=== PATIENT | male | born 1940 | race Caucasian/White ===

== ENCOUNTER 2021-07-12 19:43 | Emergency (ER) | payer OTHER, SELFPAY ==
[2021-07-12 19:50] VITALS: BP 212/95; PULSE 77; RESP 18; TEMP 36.3; O2SAT 99; BMI 29.0
[2021-07-12 21:11] LABS: Add Manual Diff / Slide Review NO; Basophils Absolute Auto 100 /uL (0-100); Basophils Percent Auto 0.5 % (0-2); Eosinophils Absolute Auto 200 /uL (0-450); Eosinophils Percent Auto 1.4 % (2-4); Hematocrit 51.3 % (41-53); Lymphocytes Absolute Auto 900 /uL (1100-4500); Mean Corpuscular HGB Conc 35.1 % (30-36); Mean Corpuscular Hemoglobin 33.5 PG (26-34); Mean Corpuscular Volume 95.4 fL (80-100); Monocytes Absolute Auto 800 /uL (0-900); Monocytes Percent Auto 7.2 % (3-14); Neutrophils Absolute Auto 9800 /uL (1500-7000); Neutrophils Percent Auto 82.9 % (50-75); Platelet Count 216 X10^3/uL (150-400); Red Blood Cell Count 5.38 X10^6/uL (4.5-5.9); Red Cell Distribution Width 13.4 % (11.6-14.8); White Blood Cell Count 11.8 X10^3/uL (4.5-11.0)
[2021-07-12 21:19] LABS: Alanine Aminotransferase 27 IU/L (<50); Albumin 5.1 g/dL (3.5-5.0); Albumin Globulin Ratio 1.3 (1.0-2.8); Alkaline Phosphatase 68 U/L (38-126); Aspartate Aminotransferase 25 IU/L (17-59); BUN Creatinine Ratio 13.3 (6-22); Blood Urea Nitrogen 20 mg/dL (9-20); Calcium 10.2 mg/dL (8.4-10.2); Carbon Dioxide 25 mmol/L (22-32); Chloride 97 mmol/L (98-107); Estimated Glomerular Filt Rate 45.1 mL/min (>60); Globulin 3.8 g/dL (1.7-4.1); Glucose 262 mg/dL (80-110); HEMOLYSIS < 15 (0-50); Lipase 41 U/L (23-300); Potassium 4.9 mmol/L (3.4-5.1); Sodium 135 mmol/L (137-145); Total Protein 8.9 g/dL (6.3-8.2)
--- NOTE | 2021-07-12 23:25 | ED.ABDPAIN ---
HPI - Abdominal Pain General Chief Complaint: Abdominal Pain Stated Complaint: Lower right ABD pain Time Seen by Provider: 07/12/21 23:11 History of Present Illness HPI narrative: Patient is a 80-year-old male history of rheumatoid arthritis on Enbrel, diabetes, hypertension, hyperlipidemia presenting with ongoing right-sided lower abdominal pain. He says been there throughout the day sharp stab be. Sometimes worse with movement. Nonradiating. He has had decreased appetite today only eating a banana. He denies any flank pain. No painful or frequent urination. He has not had any fever. No chest pain palpitations or shortness. Related Data Previous Rx's Medication Instructions Recorded cephalexin 500 mg capsule 500 mg PO TID #30 cap 10/23/16 Allergies Allergy/AdvReac Type Severity Reaction Status Date / Time Sulfa (Sulfonamide Allergy Unknown Unverified 07/12/21 19:54 Antibiotics) [SULFA (SULFONAMIDE ANTIBIOTICS)] Review of Systems Review of Systems Narrative: GENERAL: Denies chills, fatigue, malaise, fever, sweats, travel HEENT: Denies sinus pain, ear pain, sore throat, difficulty swallowing, neck pain RESPIRATORY: Denies dyspnea, cough, wheezing, hemoptysis, sputum. CARDIOVASCULAR: Denies chest pain, palpitations, orthopnea, edema GASTROINTESTINAL: See HPI : Denies dysuria, frequency, incontinence, hematuria, urinary retention, flank pain. MUSCULOSKELETAL: Denies weakness, joint pain, or bony pain SKIN: No rash, no erythema, no pruritus NEUROLOGIC: Denies weakness, dizziness, headache, numbness, change in speech, confusion PSYCHIATRIC: No concerning psychosocial issues. 12 point review of systems is negative except for those stated above and HPI Patient History Social History Smoking Status: Former smoker Smoking Status: Former smoker alcohol intake frequency: 0-2 drinks per day Substance Use Type: does not use Exam Initial Vital Signs Initial Vital Signs: Vital Signs Temperature 97.3 F L 07/12/21 19:50 Pulse Rate 77 07/12/21 19:50 Respiratory Rate 18 07/12/21 19:50 Blood Pressure 212/95 H 07/12/21 19:50 Pulse Oximetry 99 07/12/21 19:50 GENERAL: Appearing 80-year-old male and in no acute distress. HEENT: Head atraumatic,EOMI, pupils reactive, face symmetric, moist mucous membranes CARDIOVASCULAR: Regular rate and rhythm without murmurs, rubs or gallops. RESPIRATORY: Breath sounds equal bilaterally, no wheezes rales or rhonchi. ABDOMEN: Soft, tender right lower quadrant no guarding or rebound : No CVA tenderness EXTREMITIES: Normal range of motion, no clubbing or edema. Neurovascularly intact NEUROLOGICAL: Alert and oriented x4.Normal gait and speech. SKIN: Warm, dry, no laceration, no petechiae, no rashes or lesions. Course Orders Ordered: ED Orders 07/12/21 19:55 EKG-12 Lead Stat 07/12/21 21:00 Complete Blood Count AUTO DIFF Stat Comprehensive Metabolic Panel Stat Lipase Stat 07/12/21 23:31 CT abdomen pelvis w con Stat 07/13/21 00:50 Urine Microscopic Stat Discontinued Medications Acetaminophen (Acetaminophen 325 Mg Tablet) 975 mg PO NOW ONE Stop: 07/12/21 23:32 Last Admin: 07/12/21 23:43 Dose: 975 mg Documented by: CTRSUKHI Vital Signs Vital signs: Vital Signs - 8 hr 07/12/21 19:50 Temperature 97.3 F L Pulse Rate 77 Respiratory Rate 18 Blood Pressure 212/95 H Pulse Oximetry 99 MDM - Abdominal Pain Lab Data Result diagrams: 07/12/21 21:00 07/12/21 21:00 Labs: Lab Results 07/12/21 07/12/21 07/13/21 Range/Units 21:00 21:00 00:50 WBC 11.8 H (4.5-11.0) X10^3/uL RBC 5.38 (4.5-5.9) X10^6/uL Hgb 18.0 H (13.5-17.5) g/dL Hct 51.3 (41-53) % MCV 95.4 (80-100) fL MCH 33.5 (26-34) PG MCHC 35.1 (30-36) % RDW 13.4 (11.6-14.8) % Plt Count 216 (150-400) X10^3/uL Neut % (Auto) 82.9 H (50-75) % Lymph % (Auto) 8.0 L (25-40) % [place] % (Auto) 7.2 (3-14) % Eos % (Auto) 1.4 L (2-4) % Baso % (Auto) 0.5 (0-2) % Neut # (Auto) 9800 H (4328-2441) /uL Lymph # (Auto) 900 L (6634-1941) /uL [place]y # (Auto) 800 (0-900) /uL Eos # (Auto) 200 (0-450) /uL Baso # (Auto) 100 (0-100) /uL Sodium 135 L (137-145) mmol/L Potassium 4.9 (3.4-5.1) mmol/L Chloride 97 L (98-107) mmol/L Carbon Dioxide 25 (22-32) mmol/L BUN 20 (9-20) mg/dL Creatinine 1.50 H (0.66-1.25) mg/dL Estimated GFR 45.1 L (>60) mL/min BUN/Creatinine Ratio 13.3 (6-22) Glucose 262 H (80-110) mg/dL Calcium 10.2 (8.4-10.2) mg/dL Total Bilirubin 2.0 H (0.2-1.3) mg/dL AST 25 (17-59) IU/L ALT 27 (<50) IU/L Alkaline Phosphatase 68 (38-126) U/L Total Protein 8.9 H (6.3-8.2) g/dL Albumin 5.1 H (3.5-5.0) g/dL Globulin 3.8 (1.7-4.1) g/dL Albumin/Globulin Ratio 1.3 (1.0-2.8) Lipase 41 (23-300) U/L Urine RBC 0-1/hpf (0-5/HPF) Urine WBC None seen (0-5/HPF) Ur Squamous Epith Cells None seen (0-5/HPF) Urine Bacteria None seen (None) Ur Culture Indicated? Cult not indicated Point of care testing: Urine Dip Bedside Urine Glucose 1000 mg/dl Bedside Urine Bilirubin - Negative Bedside Urine Ketone - Negative Urine Specific [place] 1.015 Bedside Urine Occult Blood - Negative Bedside Urine pH 6.0 Bedside Urine Protein + 30 Bedside Urine Urobilinogen - Negative Bedside Urine Nitrite - Negative Bedside Urine Leukocytes - Negative Esterase Imaging Data CT scan - abdomen/pelvis: Radiologist's Impression: PROCEDURE:? CT ABDOMEN PELVIS W CON ? INDICATIONS:? rlq pain ? TECHNIQUE:? After the administration of IV contrast, axial sections were acquired from the lung bases to the pubic symphysis.? Coronal and sagittal reformats were performed.? For radiation dose reduction, the following was used:? automated exposure control, adjustment of mA and/or kV according to patient size. ? COMPARISON:? None. ? FINDINGS:? Image quality:? Excellent.? ? Lung bases:? There is mild dependent atelectasis and scarring in the lung bases.? Subpleural reticulations also noted suggestive of chronic interstitial lung disease. ? Heart:? Heart is normal in size.? There is a small hiatal hernia. ? ? ABDOMEN: Liver:? No mass lesion. Gallbladder:? Within normal limits without calcified gallstones.? ? Biliary ducts:? No biliary ductal dilatation.? ? Pancreas:? Unremarkable.? ? Spleen:? Normal in size.? ? Adrenal Glands:? No adrenal nodules.? ? Kidneys and Ureters:? There is an obstructing stone measuring up to 1 cm at the right ureteropelvic junction.? This demonstrates attenuation values of approximately 5803-5513 Hounsfield units.? There is associated moderate right hydronephrosis extensive perinephric fat stranding and asymmetric hypoenhancement of the right kidney.? There is a nonobstructing stone measuring up to 0.7 cm in the inferior pole of the right kidney with attenuation values approximately 2417-7060 Hounsfield units.? 2 additional punctate nonobstructing stones are also demonstrated within the right kidney.? There is an exophytic heterogeneous enhancing mass in the inferior pole of the right kidney measuring approximately 5.7 x 3.0 x 3.9 cm.? This demonstrates no adjacent solid organ invasion or renal vein invasion.? The left kidney demonstrates no hydronephrosis or discrete renal stones.? The ureters are nondistended ? Stomach and Bowel:? Stomach, small bowel loops, and colon are normal in caliber and wall thickness.? No evidence of appendicitis.? There is colonic diverticulosis without acute diverticulitis. Peritoneum:? No abnormal intraperitoneal fluid.? No free air.? ? Ventral Wall: ? No hernia.? Abdominal Nodes:? No retroperitoneal or mesenteric adenopathy by size criteria.? Vessels:? Aorta and inferior vena cava are normal in size.? ? PELVIS: Pelvic Organs:? Unremarkable.? ? Bladder:? No bladder wall thickening.? There is moderate to severe distention of the urinary bladder.? ? Pelvic Nodes: No enlarged lymph nodes.? Miscellaneous: No inguinal hernias are seen. ? ? ? Bones:? Visualized osseous structures demonstrate no suspicious focal lesions. ? IMPRESSION:? ? 1. Obstruction urinary stone at the right UPJ with associated moderate right hydronephrosis, perinephric stranding, and asymmetrically delayed enhancement of the right kidney. ? 2. Exophytic heterogeneously enhancing mass extending from the inferior pole of the right kidney.? The findings are highly suspicious for a neoplasm, likely renal cell carcinoma.? No evidence of adjacent perinephric solid organ invasion or renal vein invasion. ? 3. Additional nonobstructing right renal stones as described. ? 4. No evidence of appendicitis.? ? Dictated by: Easton Rader M.D. on 07/12/2021 at 23:59 ? ? ECG Data Interpretation: Normal sinus rhythm rate 66 LA interval [address] changes or T-wave inversions MDM Narrative Medical decision making narrative: patient is found to have a large right 1 cm kidney stone at the UPJ with multiple other stones in the kidney. Her he unfortunately is also found have a large right renal mass as well concerning for carcinoma. At this time blood work does not show significant abnormalities creatinine is slightly elevated. No in urine infection. 1230- Dr. Keys updated patient's symptoms test results recommends patient stay NPO and call the office 1st thing in the morning and he will place a stent for the stone. Discharge Plan Departure Patient Disposition: Home Clinical Impression: Kidney stones, Kidney mass Instructions: DI for Kidney Stones Activity Restrictions/Additional Instructions: DO NOT EAT OR DRINK ANYTHING Call Dr. Keys office around 8 or 830 this morning. You will need intervention for your large kidney stone which is about 1 cm. Is also found that you have right sided renal mass concerning for cancer. This will also need to be addressed. You may need referral to [facility] as well, please discuss this with Dr. Keys You may take Tylenol 1000 mg every 6 hours if needed for [id number] pain with a sip of water Return to emergency department if having increasing pain, fever or any new or worsening symptoms Prescriptions: No Action cephalexin 500 MG capsule 500 mg PO TID Qty: 30 0RF Referrals: Deejay Keys MD [Physician] -
--- NOTE | 2021-07-12 23:31 | DI.CT.S_ITS ---
PROCEDURE: CT ABDOMEN PELVIS W CON INDICATIONS: rlq pain TECHNIQUE: After the administration of IV contrast, axial sections were acquired from the lung bases to the pubic symphysis. Coronal and sagittal reformats were performed. For radiation dose reduction, the following was used: automated exposure control, adjustment of mA and/or kV according to patient size. COMPARISON: None. FINDINGS: Image quality: Excellent. Lung bases: There is mild dependent atelectasis and scarring in the lung bases. Subpleural reticulations also noted suggestive of chronic interstitial lung disease. Heart: Heart is normal in size. There is a small hiatal hernia. ABDOMEN: Liver: No mass lesion. Gallbladder: Within normal limits without calcified gallstones. Biliary ducts: No biliary ductal dilatation. Pancreas: Unremarkable. Spleen: Normal in size. Adrenal Glands: No adrenal nodules. Kidneys and Ureters: There is an obstructing stone measuring up to 1 cm at the right ureteropelvic junction. This demonstrates attenuation values of approximately 0722-4447 Hounsfield units. There is associated moderate right hydronephrosis extensive perinephric fat stranding and asymmetric hypoenhancement of the right kidney. There is a nonobstructing stone measuring up to 0.7 cm in the inferior pole of the right kidney with attenuation values approximately 6100-0857 Hounsfield units. 2 additional punctate nonobstructing stones are also demonstrated within the right kidney. There is an exophytic heterogeneous enhancing mass in the inferior pole of the right kidney measuring approximately 5.7 x 3.0 x 3.9 cm. This demonstrates no adjacent solid organ invasion or renal vein invasion. The left kidney demonstrates no hydronephrosis or discrete renal stones. The ureters are nondistended Stomach and Bowel: Stomach, small bowel loops, and colon are normal in caliber and wall thickness. No evidence of appendicitis. There is colonic diverticulosis without acute diverticulitis. Peritoneum: No abnormal intraperitoneal fluid. No free air. Ventral Wall: No hernia. Abdominal Nodes: No retroperitoneal or mesenteric adenopathy by size criteria. Vessels: Aorta and inferior vena cava are normal in size. PELVIS: Pelvic Organs: Unremarkable. Bladder: No bladder wall thickening. There is moderate to severe distention of the urinary bladder. Pelvic Nodes: No enlarged lymph nodes. Miscellaneous: No inguinal hernias are seen. Bones: Visualized osseous structures demonstrate no suspicious focal lesions. IMPRESSION: 1. Obstruction urinary stone at the right UPJ with associated moderate right hydronephrosis, perinephric stranding, and asymmetrically delayed enhancement of the right kidney. 2. Exophytic heterogeneously enhancing mass extending from the inferior pole of the right kidney. The findings are highly suspicious for a neoplasm, likely renal cell carcinoma. No evidence of adjacent perinephric solid organ invasion or renal vein invasion. 3. Additional nonobstructing right renal stones as described. 4. No evidence of appendicitis. Dictated by: Easton aRder M.D. on 07/12/2021 at 23:59 Approved by: Easton Rader M.D. on 07/13/2021 at 0:07
[2021-07-12] MEDS: ACETAMINOPHEN 325 MG TABLET 975 MG PO (23:43)
[2021-07-13 00:59] LABS: Bacteria Urine None Seen; Culture Indicated Urine Cult Not Indicated; RBC Urine 0-1/HPF (0-5/HPF); Squamous Epithelial Cell Urine None Seen (0-5/HPF); WBC Urine None Seen (0-5/HPF)
== END 2021-07-13 01:08 | disposition home or self-care (01) ==
PROVIDERS: Emergency Provider Emergency Medicine
DX: N20.0 Calculus of kidney (principal); N28.89 Other specified disorders of kidney and ureter; I10 Essential (primary) hypertension; Z87.891 Personal history of nicotine dependence
CPT/HCPCS: 36415; 74177; 80053; 81003; 81015; 83690; 85025; 93005; 93010; 99284

== ENCOUNTER → 2021-07-13 15:41 | Outpatient (CLI) | payer OTHER, SELFPAY ==
--- NOTE | 2021-07-13 15:45 | DI.RAD.S_ITS ---
PROCEDURE: XR KUB INDICATIONS: Calculus of ureter TECHNIQUE: One view of the abdomen acquired. COMPARISON: [facility], CT, CT ABDOMEN PELVIS W CON, 07/12/2021, 23:44. FINDINGS: Surgical changes and devices: None. Bowel: Bowel gas pattern is normal. Soft tissues: Hyperdensity in the right paraspinal region at the level of the L3-4 disc space most likely represents the previously seen proximal ureteral calculus without significant change in positioning. Additional previously seen nonobstructing renal calculi are not definitely seen due to overlying stool and bowel gas. Visualized solid organ contours appear normal in size. Contrast material is seen in the bladder. Bones: No suspicious bony lesions. Multilevel degenerative changes are seen in the spine. IMPRESSION: Oval hyperdensity in the right paraspinal region most likely corresponds to the previously seen right proximal ureteral calculus, with position not significantly changed when compared to the prior CT. Dictated by: Charly Licea M.D. on 07/13/2021 at 16:35 Approved by: Charly Licea M.D. on 07/13/2021 at 16:43
== END ==
PROVIDERS: Referring Provider Specialist; Visit Provider Specialist
DX: N20.1 Calculus of ureter (principal)
CPT/HCPCS: 74018

== ENCOUNTER → 2021-07-14 13:10 | Outpatient (CLI) | payer MEDICARE, SELFPAY ==
[2021-07-14 14:42] LABS: COVID19 -Nasal RAPID Negative (Negative)
== END ==
PROVIDERS: Visit Provider Specialist
DX: N20.1 Calculus of ureter (principal); N23 Unspecified renal colic; N28.89 Other specified disorders of kidney and ureter; Z20.822 Contact with and (suspected) exposure to COVID-19
CPT/HCPCS: 51798; 81002; 87635; 99215

== ENCOUNTER 2021-07-17 09:36 | Day surgery (SDC) | payer MEDICARE, SELFPAY ==
[2021-07-17] VITALS (12 sets, daily range): BP systolic 75–130; BP diastolic 42–79; PULSE 65–94; RESP 11–20; TEMP 35.6–36.6; O2SAT 97–100; BMI 29.0
--- NOTE | 2021-07-17 | DI.RAD.S_ITS ---
PROCEDURE: XR ABDOMEN 1V INDICATIONS: RT STENT PLACEMENT TECHNIQUE: One view of the abdomen acquired. COMPARISON: [facility], CT, CT ABDOMEN PELVIS W CON, 07/12/2021, 23:44. FINDINGS: Intraoperative images demonstrating ureterovesicular stent overlying the labeled right kidney and ureter. There is no contrast injection. IMPRESSION: Stent overlying the labeled right kidney and ureter. Dictated by: Shauna De La Cruz M.D. on 07/17/2021 at 16:15 Approved by: Shauna De La Cruz M.D. on 07/17/2021 at 16:16
--- NOTE | 2021-07-17 10:53 | SUR.PREOP ---
Dr Toledo informed of blood glucose, no orders given; wants patient to resume his protocol at home.
--- NOTE | 2021-07-17 10:54 | SUR.OPER ---
Lithotomy on padded OR bed, head on pillow, arms secured on padded arm boards at <90 degrees abduction. Legs secured in padded yellow fins stirrups.
--- NOTE | 2021-07-17 11:03 | PM.PREOP ---
Pre-operative Note COVID-19 Criteria for continued procedure: Expected advancement of disease process, Possibility delay results in more complex future surgery or treatment, Increased loss of function, Continuing or worsening of significant or severe pain, Deterioration of the patient's condition or overall health, Delay expected to result in less-positive ultimate med/surg outcome and Non-surgical alternatives not available or appropriate per current SOC Interval Note History & Physical reviewed/Exam performed by Physician: Yes Changes to H&P: No
[2021-07-17] MEDS: CEFAZOLIN 2 GM/20 ML SYRINGE IV (11:05)
--- NOTE | 2021-07-17 11:54 | P.OP_ITS ---
Operative Date/Time/Diagnoses Date of procedure: 07/17/21 Time of procedure: 11:40 Pre-op diagnosis: 1. Obstructing 12 mm right mid ureteral calculus. 2. Acute kidney injury. Post-op diagnosis: same Procedure & Clinicians Procedure: 1. Cystoscopy/placement right ureteral stent (7 Ukrainian by 22-32 cm multi- length). 2. Cystoscopy/right ureteral stone manipulation without removal. Same procedure as scheduled: Yes Indications: 1. Obstructing 12 mm right mid ureteral calculus. 2. Acute kidney injury. Click Yes if Unassisted: Yes Anesthesia Type: General Operative Notes Findings: 1. Urethra-normal caliber without annular stricture or lesion. 2. External sphincter-coapted with normal overlying urothelium. 3. Prostate-4 cm length with [id number] trilobar hyperplasia. 4. Bladder-1+ trabeculation. Normal ureteral orifices bilaterally. No evidence of stone, tumor, foreign body, or diverticulum. 5. Right ureter-index calculus located fluoroscopically unchanged in position in comparison to preoperative imaging. In the process of passing wire and ureteral stent the stone was manipulated retrograde into the intrarenal collecting system. Closure Type: not applicable Specimen(s): none sent Applied: other (Seven Ukrainian by 22-32 cm multi-length stent) Estimated Blood Loss (mL): 0 Blood products transfused: none Procedure in detail: Patient was positioned in supine was administered general anesthesia. He was then repositioned semi lithotomy and the lower abdomen, genitalia, and groin were then prepped and draped in sterile fashion. Twenty-two Ukrainian panendoscope was then passed lower urinary tract with the findings as described above. Next, 0.35 hybrid wire was selected and passed into the right collecting system under direct and fluoroscopic guidance. Next, a 7 Ukrainian by 22-32 cm multi-length stent was selected and advanced over the hybrid guidewire, again under direct and fluoroscopic guidance. Fluoroscopic imaging indicated retrograde repositioning of the calculus within the right intrarenal collecting system. NO RETRIEVAL LINE WAS LEFT ATTACHED. The bladder was then drained completely, and all instrumentation was removed. The patient was then repositioned in supine, was awakened, transferred to [facility], and transported to recovery in stable condition. Complications: none Post-operative Condition: stable Disposition: PACU Plan for aftercare: Discharge home.
[2021-07-17] MEDS: LACTATED RINGERS 1,000 ML 42 ML IV (12:19)
--- NOTE | 2021-07-17 12:27 | SUR.PHASEII ---
Discharged patient home in stable condition with friend. GCS 15; denies pain or nausea; abdomen soft; no distress noted.
== END 2021-07-17 12:27 | disposition home or self-care (01) ==
PROVIDERS: Referring Provider Specialist; Visit Provider Specialist
PROC: (CPT 52330; principal; 2021-07-17 10:45)
DX: N20.1 Calculus of ureter (principal); N17.9 Acute kidney failure, unspecified; E11.9 Type 2 diabetes mellitus without complications; E78.5 Hyperlipidemia, unspecified; I10 Essential (primary) hypertension; Z79.84 Long term (current) use of oral hypoglycemic drugs
CPT/HCPCS: 52330; 52332; 74018; 76000; 82962; J0690; J2250; J2405; J2704; J3010

== ENCOUNTER → 2021-07-29 09:34 | Outpatient (CLI) | payer MEDICARE, SELFPAY ==
--- NOTE | 2021-07-29 09:37 | DI.RAD.S_ITS ---
PROCEDURE: XR KUB INDICATIONS: ureteral calculus. renal mass. TECHNIQUE: One view of the abdomen acquired. COMPARISON: [facility], CR, XR ABDOMEN 1V, 07/17/2021, 0:00. [facility], CR, XR KUB, 07/13/2021, 15:53. FINDINGS: Surgical changes and devices: None. Bowel: Bowel gas pattern is normal. Soft tissues: Right-sided double-J ureteral calculus present. Right-sided multiple renal calculi measure up to 1.3 cm. Bones: No suspicious bony lesions. IMPRESSION: Right-sided renal calculi measure up to 1.3 cm. Double-J right ureteral stent in place Approved by: Obed Dudley M.D. on 07/29/2021 at 13:56
== END ==
PROVIDERS: Referring Provider Specialist; Visit Provider Specialist
DX: N20.2 Calculus of kidney with calculus of ureter (principal); N28.89 Other specified disorders of kidney and ureter; Z96.0 Presence of urogenital implants
CPT/HCPCS: 74018

== ENCOUNTER → 2021-11-27 13:13 | Outpatient (CLI) | payer OTHER, SELFPAY ==
--- NOTE | 2021-11-27 | DI.CT.S_ITS ---
PROCEDURE: CT CHEST ABD PEL W CON INDICATIONS: RIGHT RENAL MASS TECHNIQUE: After the administration of oral and intravenous contrast, axial sections acquired from the supraclavicular neck to the pubic symphysis. Coronal and sagittal reformats were performed. For radiation dose reduction, the following was used: automated exposure control, adjustment of mA and/or kV according to patient size. COMPARISON: [facility], CT, CT ABDOMEN PELVIS W CON, 07/12/2021, 23:44. FINDINGS: Image quality: Excellent. CHEST: Lower Neck: No enlarged lymph nodes. Thyroid: Within normal limits. Axillae: No enlarged lymph nodes. Chest Wall: Unremarkable. Lungs and Airways: No consolidation or suspicious nodules. Mild chronic interstitial pulmonary fibrosis. Pleura: No pneumothorax or pleural effusions. Heart: Heart size is normal. No pericardial effusion. Mild coronary artery calcifications. Thoracic Vessels: The aorta and pulmonary arteries demonstrate normal size. Mediastinum and Jocelyne: No enlarged lymph nodes. Esophagus: No wall thickening. Small hiatal hernia. ABDOMEN: Liver: Mild diffuse hepatic steatosis. No focal liver mass. Gallbladder: Unremarkable. Biliary ducts: Unremarkable. Pancreas: Unremarkable. Spleen: Unremarkable. Adrenal Glands: Unremarkable. Kidneys and Ureters: Interval growth of an enhancing exophytic mass off the lower pole of the left kidney. By my measurements, it previously measured 4.4 x 3.6 x 5.7 cm and currently measures 4.9 x 4.0 x 6.2 cm. It has the appearance of a renal cell carcinoma. There is a right double-J ureteral stent in place. There is continued presence of a large proximal right ureteral stone which measures 1 cm in diameter. There is no right hydronephrosis or delayed nephrogram. Left kidney and ureter are unremarkable. Stomach and Bowel: Sigmoid diverticulosis without evidence of diverticulitis. Peritoneum: No abnormal intraperitoneal fluid. No free air. Ventral Wall: Fat containing umbilical hernia. Abdominal Nodes: No retroperitoneal or mesenteric adenopathy by size criteria. Vessels: Aorta and inferior vena cava are normal in size. PELVIS: Pelvic Organs: Unremarkable. Bladder: Unremarkable. Pelvic Nodes: No enlarged lymph nodes. Miscellaneous: Bilateral fat containing inguinal hernias. Bones: Lumbar degenerative change. No lytic or blastic bony lesions. No compression fractures. IMPRESSION: 1. Definite interval increase in size of a large left lower pole renal mass, likely representing a primary renal cell carcinoma. 2. No evidence of metastatic disease in the chest, abdomen, and pelvis. 3. Continued presence of a 1 cm proximal right ureteral stone. A right ureteral stent decompresses the kidney. There is no hydronephrosis. 4. Mild chronic interstitial pulmonary fibrosis. Dictated by: Yousuf Wagner M.D. on 11/27/2021 at 16:30 Approved by: Yousuf Wagner M.D. on 11/27/2021 at 16:40
[2021-11-27 13:48] LABS: BUN Creatinine Ratio 15.2 (6-22); Blood Urea Nitrogen 19 mg/dL (9-20); Calcium 9.7 mg/dL (8.4-10.2); Carbon Dioxide 26 mmol/L (22-32); Chloride 103 mmol/L (98-107); Estimated Glomerular Filt Rate 58 mL/min (>60); Glucose 177 mg/dL (80-110); HEMOLYSIS < 15 (0-50); Potassium 4.3 mmol/L (3.4-5.1); Sodium 136 mmol/L (137-145)
== END ==
PROVIDERS: Referring Provider Urology; Visit Provider Urology
DX: N28.89 Other specified disorders of kidney and ureter (principal); Z01.812 Encounter for preprocedural laboratory examination; N20.1 Calculus of ureter; J84.10 Pulmonary fibrosis, unspecified; I25.10 Atherosclerotic heart disease of native coronary artery without angina pectoris; K44.9 Diaphragmatic hernia without obstruction or gangrene; K76.0 Fatty (change of) liver, not elsewhere classified; K57.30 Diverticulosis of large intestine without perforation or abscess without bleeding; K40.90 Unilateral inguinal hernia, without obstruction or gangrene, not specified as recurrent; K42.9 Umbilical hernia without obstruction or gangrene; Z96.0 Presence of urogenital implants
CPT/HCPCS: 36415; 71260; 74177; 80048; Q9967

== ENCOUNTER → 2022-06-30 13:21 | Outpatient (CLI) | payer OTHER, SELFPAY ==
[2022-06-30 14:44] LABS: Alanine Aminotransferase 25 IU/L (<50); Albumin 4.3 g/dL (3.5-5.0); Albumin Globulin Ratio 1.5 (1.0-2.8); Alkaline Phosphatase 75 U/L (38-126); Aspartate Aminotransferase 22 IU/L (17-59); BUN Creatinine Ratio 14.7 (6-22); Bilirubin Total 1.1 mg/dL (0.2-1.3); Blood Urea Nitrogen 28 mg/dL (9-20); Calcium 9.6 mg/dL (8.4-10.2); Carbon Dioxide 25 mmol/L (22-32); Chloride 102 mmol/L (98-107); Estimated Glomerular Filt Rate 35 mL/min (>60); Globulin 2.8 g/dL (1.7-4.1); Glucose 296 mg/dL (80-110); HEMOLYSIS < 15 (0-50); Sodium 136 mmol/L (137-145); Total Protein 7.1 g/dL (6.3-8.2)
== END ==
PROVIDERS: Referring Provider Urology; Visit Provider Urology
DX: Z01.812 Encounter for preprocedural laboratory examination (principal)
CPT/HCPCS: 36415; 80053

== ENCOUNTER → 2022-07-05 08:36 | Outpatient (CLI) | payer MEDICARE, SELFPAY ==
--- NOTE | 2022-07-05 | DI.CT.S_ITS ---
PROCEDURE: CT CHEST ABDOMEN W CON INDICATIONS: malignant neoplasm of right kidney TECHNIQUE: After the administration of oral contrast and intravenous contrast, 5 mm thick sections acquired from the lung apices to the iliac crests. 5 mm coronal and sagittal reformats were performed, with additional 7 mm coronal MIP reformats through the lungs. For radiation dose reduction, the following was used: automated exposure control, adjustment of mA and/or kV according to patient size. COMPARISON: [facility], CT, CT CHEST ABD PEL W CON, 11/27/2021, 15:13. FINDINGS: Image quality: Excellent. CHEST: Lungs and pleura: Central and peripheral airways are patent. Mild bilateral lower lobe bronchiectasis. Mild bilateral subpleural reticulation in the mid and lower lung arguello including costophrenic sulci bilaterally. No pleural effusions no suspicious nodules or lung masses. Mediastinum: Heart size is normal. No pericardial effusion. No mediastinal or hilar adenopathy by size criteria. Thoracic aorta and central pulmonary arteries are normal in size. Esophagus is normal in caliber. No hiatal hernia. Chest wall: No axillary or supraclavicular adenopathy by size criteria. Thyroid gland appears normal. . ABDOMEN: Solid organs: Liver is normal in size and enhancement. Gallbladder demonstrates normal wall thickness without calcified gallstones. Biliary system is non dilated. Pancreas enhances normally. Spleen is normal in size and enhancement. No adrenal nodules. The right kidney is surgically absent. The left kidney is normal. No hydronephrosis or intrarenal calcification. No suspicious soft tissue nodules in the right renal fossa. Peritoneum and bowel: The stomach and visible loops of bowel are within normal limits. No free air or visible free fluid. Nodes and vessels: No retroperitoneal or mesenteric adenopathy. Abdominal aorta is normal caliber and demonstrates mild mixed calcified and noncalcified atherosclerosis. There is heavy splenic artery calcification. The inferior vena cava is normal caliber. Bones: Partial ankylosis of both sacroiliac joints. Mild bilateral lower lumbar facet arthropathy. Multilevel degenerative disc and endplate changes including bridging syndesmophytes. Osteoarthritic change at the left sternoclavicular joint. No suspicious bone lesions. Miscellaneous: Small fat containing umbilical hernia. IMPRESSION: 1. Interval right nephrectomy without evidence of residual or recurrent disease. 2. No evidence of metastatic disease in the chest or abdomen. 3. Mild chronic interstitial fibrosis. 4. Osseous changes as described without evidence of suspicious bone lesions. Dictated by: Juju Martin M.D. on 07/05/2022 at 11:02 Approved by: Juju Martin M.D. on 07/05/2022 at 11:12
== END ==
PROVIDERS: Referring Provider Nurse Practitioner Adult Health; Visit Provider Nurse Practitioner Adult Health
DX: C64.1 Malignant neoplasm of right kidney, except renal pelvis (principal); J84.10 Pulmonary fibrosis, unspecified; K42.9 Umbilical hernia without obstruction or gangrene; I70.8 Atherosclerosis of other arteries; M47.816 Spondylosis without myelopathy or radiculopathy, lumbar region; Z90.5 Acquired absence of kidney
CPT/HCPCS: 71260; 74160; Q9967

== ENCOUNTER → 2022-08-25 13:06 | Outpatient (CLI) | payer MEDICARE, SELFPAY ==
--- NOTE | 2022-08-25 | DI.MRI.S_ITS ---
PROCEDURE: MR FOOT LT WO/W CON INDICATIONS: Other acute osteomyelitis, left foot TECHNIQUE: Noncontrast sagittal T1 spin echo and T2 fast spin echo with fat saturation, long-axis T1 spin echo and STIR; short-axis T1 spin echo, proton density fast spin echo, and T2 fast spin echo with fat saturation through the forefoot. Post-contrast short axis, long axis, and sagittal T1 spin echo with fat saturation through the forefoot. COMPARISON: [facility], CR, XR FOOT 3 VIEWS WEIGHT BEARING BILATERAL, 07/21/2022, 15:45. FINDINGS: Image quality: Excellent. Bones and joints: No focal intraosseous edema or enhancement are seen to suggest active osteomyelitis. Moderate hallux valgus. Chronic erosive changes are again noted at the interphalangeal joints of the toes, most notably at the 3rd proximal interphalangeal joint and the 2nd distal interphalangeal joint, in keeping with patient's history of psoriatic arthritis. There is medial subluxation of the hallux sesamoids with mild degenerative changes. Moderate joint changes are seen at the 1st metatarsophalangeal joint. No significant arthritic changes are seen in the midfoot. Soft tissues: No enhancing soft tissue mass. There is small amount of fluid in the distal 2nd toe in the region of the nail with mild surrounding soft tissue edema and enhancement. Increased T2-weighted signal intensity and mild fatty infiltration of the intrinsic foot musculature is most likely related to chronic denervation changes. The distal insertions of the peroneus brevis and longus tendons appear intact. The principal Lisfranc ligament appears intact. No interdigital mass. IMPRESSION: 1. No definite MR evidence of osteomyelitis. 2. Small amount of fluid is seen in the region of the 2nd toenail with surrounding nonspecific soft tissue edema, and nailbed infection is not excluded. Recommend correlation with physical exam findings. 3. Chronic osseous erosions and arthritic changes throughout the interphalangeal joints of the toes are seen in keeping with patient's reported history of psoriatic arthritis. No definite signs of active disease. 4. Moderate hallux valgus and moderate degenerative changes at the 1st metatarsophalangeal and metatarsal-sesamoid articulations. 5. Mild fatty infiltration and increased T2 signal within the intrinsic foot musculature is most consistent with chronic denervation changes. Approved by: Charly Licea M.D. on 08/26/2022 at 8:41
== END ==
PROVIDERS: Referring Provider Podiatrist Foot & Ankle Surgery; Visit Provider Podiatrist Foot & Ankle Surgery
DX: M86.172 Other acute osteomyelitis, left ankle and foot (principal)
CPT/HCPCS: 73720

== ENCOUNTER → 2023-01-06 14:21 | Outpatient (CLI) | payer MEDICARE, SELFPAY ==
[2023-01-06 15:01] LABS: Estimated Glomerular Filt Rate 28 mL/min (>60)
== END ==
PROVIDERS: Referring Provider Radiology Diagnostic Radiology; Visit Provider Radiology Diagnostic Radiology
DX: C64.1 Malignant neoplasm of right kidney, except renal pelvis (principal)
CPT/HCPCS: 36415; 82565

== ENCOUNTER → 2023-01-07 07:55 | Outpatient (CLI) | payer MEDICARE, SELFPAY ==
--- NOTE | 2023-01-07 | DI.CT.S_ITS ---
PROCEDURE: CT ABDOMEN W CON INDICATIONS: Malignant neoplasm of right kidney, except renal pelvis TECHNIQUE: After the administration of intravenous contrast, axial sections were acquired from the lung bases to the pubic symphysis. Coronal and sagittal reformats were performed. For radiation dose reduction, the following was used: automated exposure control, adjustment of mA and/or kV according to patient size. COMPARISON:[facility], CT, CT CHEST ABDOMEN W CON, 07/05/2022, 9:17. FINDINGS: Image quality: Good Lower chest: Separately dictated. Solid organs: The liver is unremarkable. Liver dome granuloma again seen. The gallbladder is unremarkable. No pathologic dilation of the biliary system or pancreatic duct. No splenomegaly. No adrenal nodules. Right nephrectomy changes, no suspicious recurrent soft tissue. There are postsurgical changes. No left hydronephrosis. No solid left renal mass. Vessels and lymph nodes: No abdominal aortic aneurysm. There is atherosclerotic disease. No pathologic lymphadenopathy by size criteria. The main portal vein is patent. Bowel and peritoneum: Mildly distended fluid-filled stomach. No evidence of small bowel obstruction. No pathologic ascites or abscess. Body wall: Fat containing small umbilical hernia. Bones: Degenerative changes. IMPRESSION: No active disease identified in the abdomen. See CT chest report for other findings. Dictated by: Tejinder Willis M.D. on 01/07/2023 at 10:29 Approved by: Tejinder Willis M.D. on 01/07/2023 at 10:32
--- NOTE | 2023-01-07 | DI.CT.S_ITS ---
PROCEDURE: CT CHEST WO CON INDICATIONS: Malignant neoplasm of right kidney, except renal pelvis TECHNIQUE: Noncontrast 5 mm thick sections acquired from the pulmonary apices to the posterior costophrenic angles. 1 mm lung window, 5 mm thick coronal and sagittal and 7 mm axial MIP reformats were then acquired. For radiation dose reduction, the following was used: automated exposure control, adjustment of mA and/or kV according to patient size. COMPARISON: [facility], CT, CT CHEST ABDOMEN W CON, 07/05/2022, 9:17. FINDINGS: Image quality: Good Lungs and pleura: There is peripheral reticulation, and scattered scarring and atelectasis. Overall findings are similar to prior. No dense consolidation. No pleural effusions. Multiple pulmonary micro nodules are present. There are some that may be slightly enlarged, most notably in the left lower lobe measuring 5 millimeters, previously 2-3 millimeters (). Mediastinum, heart, and esophagus: Coronary calcifications. No pathologic lymph nodes by size criteria. Normal heart size. No hiatal hernia Chest wall and thyroid: . Unremarkable Upper abdomen: Separately dictated. There are atherosclerotic calcifications. Bones: No acute or suspicious osseous finding. Scattered degenerative changes are present. IMPRESSION: Indeterminate small pulmonary nodules, some which are slightly increased in size, suspicious, index finding in the left lower lobe measuring 5 millimeters, previously 2-3 millimeters (/197). Short interval CT follow-up is recommended. This is too small to consider biopsy or PET-CT. Abdominal findings are separately dictated. Other findings as above. Dictated by: Tejinder Willis M.D. on 01/07/2023 at 10:23 Approved by: Tejinder Willis M.D. on 01/07/2023 at 10:29
== END ==
PROVIDERS: Referring Provider Urology; Visit Provider Urology
DX: C64.1 Malignant neoplasm of right kidney, except renal pelvis (principal); R91.8 Other nonspecific abnormal finding of lung field; I25.10 Atherosclerotic heart disease of native coronary artery without angina pectoris; K42.9 Umbilical hernia without obstruction or gangrene
CPT/HCPCS: 71250; 74160

== ENCOUNTER → 2023-01-10 11:00 | Outpatient (CLI) | payer MEDICARE, SELFPAY ==
[2023-01-10 16:04] LABS: Campylobacter Not Detected (Not Detect); Clostridium difficile toxin AB Not Detected (Not Detect); Enteroaggregative E.coli Not Detected (Not Detect); Plesiomonsa shigelloides Not Detected (Not Detect); Salmonella Not Detected (Not Detect); Vibrio Not Detected (Not Detect); Vibrio cholerae Not Detected (Not Detect); Yersinia enterocolitica Not Detected (Not Detect)
[2023-01-10 16:05] LABS: Adenovirus F 40/41 Not Detected (Not Detect); Astrovirus Not Detected (Not Detect); Cryptosporidium Not Detected (Not Detect); Cyclospora cayetanensis Not Detected (Not Detect); Entamoeba histolytica Not Detected (Not Detect); Enteropathogenic E.coli Not Detected (Not Detect); Enterotoxigenic E.coli It/st Not Detected (Not Detect); Giardia lamblia Detected (Not Detect); Norovirus GI/GII Not Detected (Not Detect); Rotavirus A Not Detected (Not Detect); Sapovirus Not Detected (Not Detect); Shiga-like toxin-prod E.coli Not Detected (Not Detect); Shigella/Enteroinvasive E.coli Not Detected (Not Detect)
== END ==
PROVIDERS: Referring Provider Student in an Organized Health Care Education/Training Program; Visit Provider Student in an Organized Health Care Education/Training Program
DX: R19.7 Diarrhea, unspecified (principal)
CPT/HCPCS: 87507

== ENCOUNTER 2023-03-29 06:19 | Day surgery (SDC) | payer MEDICARE, SELFPAY ==
--- NOTE | 2023-03-07 12:49 | SUR.PREOP ---
See new orders for pre-op orders.
[2023-03-29] VITALS (7 sets, daily range): BP systolic 107–134; BP diastolic 50–88; PULSE 68–97; RESP 16–18; TEMP 36.2–36.9; O2SAT 94–100; BMI 27.9
--- NOTE | 2023-03-29 | PATH_ITS ---
[facility] Accession Number: [id number] No. of containers..01 Tissue . 01 Material submitted: . toe - LEFT SECOND TOE . 01 Diagnosis: Left Second Toe, Amputation: Actively inflamed chronic ulcer of skin. Viable bone with focal reactive changes. Margins of resection viable. MRV 04/07/2023 1518 Local . 01 Electronically signed: . Mary Parisi MD, Pathologist NPI- [id number] . 01 Gross description: . The specimen is received in formalin labeled with the patient's name, , and left second toe, consists of a disarticulated digit measuring 2.8 cm in length by 1.7 cm in average diameter, with nugent, wrinkled cutaneous surface and an ulcerated lesion measuring 1.2 x 1.0 cm, and located 0.2 cm from the nearest soft tissue margin. The nail bed is nugent and unremarkable. The soft tissue margin is inked blue while the articular surface is inked orange. Sectioning reveals nugent soft tissue with nugent osseous tissue that is relatively easy to section with a scalpel. Kinesiology Professor sections are submitted as follows: . A1: Soft tissue margin en face. A2: Lesion with partial articular surface. A3: Additional edge of lesion with underlying bone. Submitted for decalcification. ([id number]) /MRV 03/30/20232048 Local . 01 Pathologist provided ICD-10: E11.621 . 01 CPT . 198830, 467308, [id number] Specimen Comment: A courtesy copy of this report has been sent to [facility] Performed at: 01 [facility] [address] [place] [address] [address], [place], [place] [id number] MD Easton Berumen MD Phone: [phone]
[2023-03-29 06:53] LABS: Add Manual Diff / Slide Review NO; Basophils Absolute Auto 100 /uL (0-100); Basophils Percent Auto 1.3 % (0-2); Eosinophils Absolute Auto 300 /uL (0-450); Eosinophils Percent Auto 3.8 % (2-4); Hematocrit 40.6 % (41-53); Hemoglobin 14.3 g/dL (13.5-17.5); Lymphocytes Absolute Auto 1500 /uL (1100-4500); Lymphocytes Percent Auto 19.1 % (25-40); Mean Corpuscular HGB Conc 35.2 % (30-36); Mean Corpuscular Hemoglobin 33.4 PG (26-34); Monocytes Absolute Auto 500 /uL (0-900); Monocytes Percent Auto 5.8 % (3-14); Neutrophils Absolute Auto 5600 /uL (1500-7000); Platelet Count 258 X10^3/uL (150-400); Red Blood Cell Count 4.27 X10^6/uL (4.5-5.9); Red Cell Distribution Width 13.6 % (11.6-14.8); White Blood Cell Count 7.9 X10^3/uL (4.5-11.0)
[2023-03-29 07:01] LABS: Prothrombin Time 11.7 SECONDS (9.4-12.5)
[2023-03-29 07:04] LABS: PTT Partial Thromboplastin Tim 35 SECONDS (25.1-36.5)
[2023-03-29 07:08] LABS: Alanine Aminotransferase 20 IU/L (<50); Albumin 4.1 g/dL (3.5-5.0); Albumin Globulin Ratio 1.3 (1.0-2.8); Alkaline Phosphatase 91 U/L (38-126); Aspartate Aminotransferase 19 IU/L (17-59); BUN Creatinine Ratio 16.8 (6-22); Bilirubin Total 0.9 mg/dL (0.2-1.3); Blood Urea Nitrogen 35 mg/dL (9-20); Calcium 10.3 mg/dL (8.4-10.2); Carbon Dioxide 23 mmol/L (22-32); Chloride 103 mmol/L (98-107); Estimated Glomerular Filt Rate 31 mL/min (>60); Globulin 3.2 g/dL (1.7-4.1); Glucose 181 mg/dL (80-110); HEMOLYSIS < 15 (0-50); Hemoglobin A1C% w Est Avg Glu 7.7 % (4.0-6.0); Potassium 4.3 mmol/L (3.4-5.1); Sodium 135 mmol/L (137-145); Total Protein 7.3 g/dL (6.3-8.2)
[2023-03-29] MEDS: LACTATED RINGERS 1,000 ML 42 ML IV (07:12)
--- NOTE | 2023-03-29 07:26 | PM.HP.1 ---
History of Present Illness History of Present Illness Chief complaint: Left chronic ulcer second toe & rotated fifth toe Narrative: 82 year old male seen in clinic for chronic ulcer and at-risk foot care. Due to nature of progressive disease, patient elected to proceed with surgery. [facility] Medical History Right renal mass Renal colic on right side Right ureteral calculus Hyperlipemia Rheumatoid arthritis Diabetes Hypertension Surgical History (Updated 03/07/23 @ 07:51 by Jenni Mcqueen RN) Hx of cystoscopy (07/17/21) H/O vasectomy H/O circumcision Social History marital status: number of children: 3 household members: none Smoking Status: Former smoker alcohol intake: current Meds Home Medications and Allergies Home Medications Medication Instructions Recorded Confirmed Type etanercept 25 mg/0.5 mL 25 mg SUBCUT QWEEK 07/14/21 03/29/23 History subcutaneous solution (Enbrel) losartan 25 mg tablet 25 mg PO DAILY 07/14/21 03/29/23 History metformin 1,000 mg tablet 1,000 mg PO BID 07/14/21 03/29/23 History amlodipine 2.5 mg tablet 2.5 mg PO DAILY 07/17/21 03/29/23 History fluticasone propionate 50 2 spray intranasal DAILY PRN 07/17/21 03/29/23 History mcg/actuation nasal allergies spray,suspension glipizide 5 mg tablet 5 mg PO BID 07/17/21 03/29/23 History pravastatin 20 mg tablet 20 mg PO DAILY 07/17/21 03/29/23 History Allergies Allergy/AdvReac Type Severity Reaction Status Date / Time Penicillins Allergy Intermediate Rash Verified 03/29/23 06:36 Sulfa (Sulfonamide Allergy Intermediate Rash Verified 03/29/23 06:36 Antibiotics) [SULFA (SULFONAMIDE ANTIBIOTICS)] Review of Systems Review of Systems Narrative: Negative except mentioned in clinic HPI. Exam Vital Signs (past 8 hours): - 03/29/23 06:44 Temperature 98.4 F Pulse Rate 97 H Respiratory Rate 16 Blood Pressure 134/88 Pulse Oximetry 100 Oxygen Delivery Method Room Air Oxygen Delivery Method Room Air Skin Lesions: lesion noted Extrem Left lower extremity: foot Other: Adductovarus of fifth toe. Objective Labs 03/29/23 06:39 03/29/23 06:39 Labs: Laboratory Results - last 24 hr 03/29/23 06:39 WBC 7.9 RBC 4.27 L Hgb 14.3 Hct 40.6 L MCV 95.0 MCH 33.4 MCHC 35.2 RDW 13.6 Plt Count 258 Neut % (Auto) 70.0 Lymph % (Auto) 19.1 L [place] % (Auto) 5.8 Eos % (Auto) 3.8 Baso % (Auto) 1.3 Neut # (Auto) 5600 Lymph # (Auto) 1500 [place] # (Auto) 500 Eos # (Auto) 300 Baso # (Auto) 100 PT 11.7 INR 1.0 APTT 35 Sodium 135 L Potassium 4.3 Chloride 103 Carbon Dioxide 23 BUN 35 H Creatinine 2.08 H Estimated GFR 31 L BUN/Creatinine Ratio 16.8 Glucose 181 H Hemoglobin A1c 7.7 H Calcium 10.3 H Total Bilirubin 0.9 AST 19 ALT 20 Alkaline Phosphatase 91 Total Protein 7.3 Albumin 4.1 Globulin 3.2 Albumin/Globulin Ratio 1.3 Assessment & Plan Assessment & Plan narrative: 1. Chronic ulcer left second toe. 2. Adductovarus of fifth toe. Procedures include partial amputation of left second toe and de-rotational arthroplasty of left fifth toe.
[2023-03-29] MEDS: CLINDAMYCIN 600 MG/50 ML PIGGYBACK 50 MG IV (07:57)
[2023-03-29] MEDS: LIDOCAINE 1% 20 ML INJ (08:21)
--- NOTE | 2023-03-29 08:30 | SUR.OPER ---
Supine on padded OR bed, head on pillow, arms secured on padded arm boards at <90 degrees abduction, legs uncrossed, safety belt at waist, tape over blanket over lower right leg, left leg draped free with tblanketbump under left hip.
[2023-03-29] MEDS: SODIUM CHLORIDE 0.9% 1,000 ML 100 ML IV (08:33)
--- NOTE | 2023-03-29 09:30 | PM.OP.1 ---
Operative Date/Time/Diagnoses Pre-op diagnosis: 1. Left second toe chronic ulcer 2. Left fifth toe hammer digit syndrome Post-op diagnosis: same Procedure & Clinicians Procedure: 1. Left second toe partial amputation 2. Left fifth toe de-rotational arthroplasty Same procedure as scheduled: Yes Indications: 1. Left second toe chronic diabetic ulcer with deformity. 2. Left fifth toe adductovarus deformity. Surgeon: Oneil Garduno Click Yes if Unassisted: Yes Anesthesia Type: Sedation and Local Operative Notes Findings: 1. Extensive scar tissue and rigid deformity to left second and fifth toes. Procedure in detail: The patient was identified and brought into the operating room via gurney, and was transferred to the operating room table. The patient was in the supine position. A well-padded tourniquet was applied to left ankle. The left foot was then prepped and draped in the usual sterile fashion. A time-out was performed as per operating room protocol with the surgical team in agreement. Attention was directed to the left forefoot. 16 cc 1% lidocaine plain was administered to left second and fifth rays for local block. Tourniquet was raised to 250 mmHg, which remained inflated for 30 minutes. Attention was then directed to the left fifth toe. A #15 blade was used to make elliptical incision at the fifth toe with apex at proximal-lateral and distal-medial. Dissection was carried out down to the bone, and the proximal interphalangeal joint was opened. Partial removal of phalanx was performed using sagittal saw, which led to better anatomical realignment of the digit. The open surgical site was irrigated copiously using saline and closed using 4-0 vicryl and 4-0 nylon. Attention was then directed to the left second toe. A fishmouth incision was made to removed the distal aspect of the digit. The toe was disarticulated at the proximal interphalangeal joint, which was sent to pathology. The head of the proximal phalanx was then excised using sagittal saw, which was sent to microbiology as bone biopsy. No signs of acute infection noted. The open surgical site was irrigated copiously using saline and closed using 4-0 vicryl, 3-0 nylon, and 4-0 nylon. The left foot were cleaned and dried. Iodine soaked Adaptic was applied to incision sites, followed jby gauze, abdominal pad, conforming bandage, and elastic bandage wrap. Patient tolerated procedure without complication. Patient was transferred to PACU with all vitals stable. Post-operative Condition: stable Disposition: same day surgery Plan for aftercare: Limited partial WBAT to heel with post-op shoe. Keep dressing clean, dry, and intact. Elevate above heart. Take pain medications as needed. Monitor for symptoms of infection. RTC as appointed.
== END 2023-03-29 10:01 | disposition home or self-care (01) ==
PROVIDERS: Referring Provider Podiatrist Foot & Ankle Surgery; Visit Provider Podiatrist Foot & Ankle Surgery
PROC: (CPT 28160; principal; 2023-03-29 07:45)
DX: E11.621 Type 2 diabetes mellitus with foot ulcer (principal); L97.522 Non-pressure chronic ulcer of other part of left foot with fat layer exposed; M20.42 Other hammer toe(s) (acquired), left foot; I10 Essential (primary) hypertension
CPT/HCPCS: 28160; 28825; 36415; 80053; 82962; 83036; 85025; 85610; 85730; 87070; 87075; 87077; 87147; 87176; 87186; 87205; 93005; 93010; J0330; J2250; J2704; J3010

== ENCOUNTER → 2023-07-08 12:28 | Outpatient (CLI) | payer MEDICARE, SELFPAY ==
[2023-07-08 13:05] LABS: Estimated Glomerular Filt Rate 30 mL/min (>60)
== END ==
PROVIDERS: Radiology Diagnostic Radiology; Referring Provider Urology; Visit Provider Urology
DX: C64.1 Malignant neoplasm of right kidney, except renal pelvis (principal)
CPT/HCPCS: 36415; 82565

== ENCOUNTER → 2023-07-11 07:55 | Outpatient (CLI) | payer MEDICARE, SELFPAY ==
--- NOTE | 2023-07-11 07:57 | DI.CT.S_ITS ---
PROCEDURE: CT CHEST WO CON INDICATIONS: Malignant neoplasm of right kidney, except renal p TECHNIQUE: Noncontrast 5 mm thick sections acquired from the pulmonary apices to the posterior costophrenic angles. 1 mm lung window, 5 mm thick coronal and sagittal and 7 mm axial MIP reformats were then acquired. For radiation dose reduction, the following was used: automated exposure control, adjustment of mA and/or kV according to patient size. COMPARISON: [facility], CT, CT CHEST ABDOMEN W CON, 07/05/2022, 9:17. [facility], CT, CT ABDOMEN PELVIS W CON, 07/12/2021, 23:44. [facility], CT, CT CHEST WO CON, 01/07/2023, 9:27. FINDINGS: Image quality: Diagnostic. Lower Neck: No enlarged lymph nodes. Thyroid: No thyroid nodules which require sonographic follow up, per consensus guidelines. Axillae: No enlarged lymph nodes. Chest Wall: Unremarkable. Bones: Degenerative disease of the spine. No aggressive osseous abnormality. Lungs and Pleura: No pneumothorax or pleural effusions. Diffuse peripheral reticulation with subpleural sparing and bronchiectasis. No honeycombing. Diffuse bronchial thickening. A few new solid pulmonary nodules. Examples include: -5 x 7 millimeter nodule, left upper lobe (series 3, image 143). -3 millimeter solid nodule, left upper lobe (series 3, image 122). -5 millimeter solid nodule, superior right lower lobe (series 3, image 138). Heart: Heart size is normal. No pericardial effusion. Three-vessel coronary calcifications. Thoracic Vessels: The aorta and pulmonary arteries demonstrate normal size. Mediastinum and Jocelyne: No enlarged lymph nodes. Esophagus: No wall thickening. No hiatal hernia. Upper Abdomen: Please see same day CT for further discussion. IMPRESSION: Greater than 5 new solid pulmonary nodules. Findings are worrisome for metastatic disease. Similar changes of interstitial lung disease, in a nonspecific pattern. Consider pulmonology referral. Dictated by: Taye Cherry M.D. on 07/11/2023 at 8:56 Approved by: Taye Cherry M.D. on 07/11/2023 at 9:03
--- NOTE | 2023-07-11 07:57 | DI.CT.S_ITS ---
PROCEDURE: CT ABDOMEN W CON INDICATIONS: Malignant neoplasm of right kidney, except renal p TECHNIQUE: After the administration of intravenous contrast, 5 mm thick sections acquired from the diaphragms to the iliac crests. 5 mm thick coronal and sagittal reformats were acquired. For radiation dose reduction, the following was used: automated exposure control, adjustment of mA and/or kV according to patient size. COMPARISON: [facility], CT, CT ABDOMEN W CON, 01/07/2023, 9:27. FINDINGS: Image quality: Diagnostic. Lower Chest: Please see same day CT. ABDOMEN: Liver: No solid mass. Gallbladder: No radiopaque gallstones or wall thickening. Biliary ducts: No biliary dilation. Pancreas: No ductal dilation. Spleen: Size is within normal limits. Adrenal Glands: No adrenal nodules. Kidneys and Ureters: Right nephrectomy. No evidence of local recurrence in the surgical bed. Left kidney is unremarkable. Stomach and Bowel: Normal colonic caliber, without significant wall thickening. Colonic diverticulosis without evidence of diverticulitis. Peritoneum: No abnormal intraperitoneal fluid. No free air. Ventral Wall: No hernia. Abdominal Nodes: New 8 millimeter retrocaval lymph node (series 2, image 27). Growing 7 millimeter upper periaortic node (series 2, image 30), previously measuring 5 millimeters. Vessels: Aorta and inferior vena cava are normal in size. Bones: No aggressive osseous abnormality. Ankylosis of the sacroiliac joints. Degenerative disc disease. IMPRESSION: Prior right nephrectomy. New 8 millimeter retrocaval lymph node, mildly concerning for tahir disease. Growing 7 millimeter upper periaortic node, previously 5 millimeters, indeterminate but attention on follow-up. Dictated by: Taye Cherry M.D. on 07/11/2023 at 9:03 Approved by: Taye Cherry M.D. on 07/11/2023 at 9:07
== END ==
PROVIDERS: Referring Provider Urology; Visit Provider Urology
DX: C64.1 Malignant neoplasm of right kidney, except renal pelvis (principal); J84.9 Interstitial pulmonary disease, unspecified; R59.0 Localized enlarged lymph nodes; R91.8 Other nonspecific abnormal finding of lung field; I25.10 Atherosclerotic heart disease of native coronary artery without angina pectoris; K57.90 Diverticulosis of intestine, part unspecified, without perforation or abscess without bleeding; Z90.5 Acquired absence of kidney
CPT/HCPCS: 71250; 74160; Q9967

== ENCOUNTER → 2023-09-07 14:27 | Outpatient (CLI) | payer MEDICARE, SELFPAY ==
[2023-09-07 15:06] LABS: Estimated Glomerular Filt Rate 30 mL/min (>60)
== END ==
PROVIDERS: Referring Provider Radiology Diagnostic Radiology; Visit Provider Radiology Diagnostic Radiology
DX: C64.1 Malignant neoplasm of right kidney, except renal pelvis (principal)
CPT/HCPCS: 36415; 82565

== ENCOUNTER → 2023-09-09 11:17 | Outpatient (CLI) | payer MEDICARE, SELFPAY ==
--- NOTE | 2023-09-09 11:19 | DI.CT.S_ITS ---
PROCEDURE: CT CHEST WO CON INDICATIONS: Malignant neoplasm of right kidney TECHNIQUE: Noncontrast 5 mm thick sections acquired from the pulmonary apices to the posterior costophrenic angles. 1 mm lung window, 5 mm thick coronal and sagittal and 7 mm axial MIP reformats were then acquired. For radiation dose reduction, the following was used: automated exposure control, adjustment of mA and/or kV according to patient size. COMPARISON: [facility], CT, CT CHEST WO CON, 07/11/2023, 8:07. FINDINGS: Image quality: Diagnostic. Lower Neck: No enlarged lymph nodes. Thyroid: No thyroid nodules which require sonographic follow up, per consensus guidelines. Axillae: No enlarged lymph nodes. Chest Wall: Unremarkable. Bones: Multiple bulky marginal osteophytes of the spine Lungs and Pleura: No pneumothorax or pleural effusions. Basilar predominant reticulation with subpleural sparing. Bronchiectasis is present. No honeycombing. No ground-glass. Multiple solid pulmonary nodules. Examples include: -stable 6-7 mm solid nodule, right lower lobe (series 3, image 148). -stable 5-6 mm solid nodule, left upper lobe (series 3, image 147). -stable 3 mm solid nodule, right upper lobe (series 3, image 167). -stable 6 mm solid nodule, left lower lobe (series 3, image 199). Heart: Heart size is mildly enlarged. No pericardial effusion. Two vessel coronary calcifications. Thoracic Vessels: The aorta and pulmonary arteries demonstrate normal size. Mediastinum and Jocelyne: No enlarged lymph nodes. Esophagus: No wall thickening. No hiatal hernia. Upper Abdomen: Visualized upper abdomen solid organs and bowel loops appear normal. IMPRESSION: Stable size and number of the pulmonary nodules. 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 Consider pulmonology referral. Dictated by: Taye Cherry M.D. on 09/09/2023 at 14:27 Approved by: Taye Cherry M.D. on 09/09/2023 at 14:31
--- NOTE | 2023-09-09 11:19 | DI.CT.S_ITS ---
PROCEDURE: CT ABDOMEN W CON INDICATIONS: Malignant neoplasm of right kidney TECHNIQUE: After the administration of intravenous contrast, 5 mm thick sections acquired from the diaphragms to the iliac crests. 5 mm thick coronal and sagittal reformats were acquired. For radiation dose reduction, the following was used: automated exposure control, adjustment of mA and/or kV according to patient size. COMPARISON: [facility], CT, CT ABDOMEN W CON, 07/11/2023, 8:07. FINDINGS: Image quality: Diagnostic. Lower Chest: Separately dictated. ABDOMEN: Liver: No solid mass. Gallbladder: No radiopaque gallstones or wall thickening. Biliary ducts: No biliary dilation. Pancreas: No ductal dilation. Spleen: Size is within normal limits. Adrenal Glands: No adrenal nodules. Kidneys and Ureters: Right nephrectomy. No left-sided hydronephrosis. Stomach and Bowel: Normal colonic caliber, without significant wall thickening. Peritoneum: No abnormal intraperitoneal fluid. No free air. Ventral Wall: Small umbilical hernia containing fat. Abdominal Nodes: Stable borderline enlarged retroperitoneal lymph nodes. Examples include: -stable 8 mm short axis node, upper periaortic station (series 2, image 29). -stable 8 mm short axis, retrocaval station (series 2, image 27). -stable 1.3 cm short axis, periaortic (series 2, image 41). Vessels: Aorta and inferior vena cava are normal in size. Bones: No aggressive osseous abnormality. Degenerative disc disease of the lumbar spine. IMPRESSION: Stable borderline enlarged retroperitoneal lymph nodes. These are indeterminate in the setting of malignancy but tahir disease or a reactive process are considerations. Dictated by: Taye Cherry M.D. on 09/09/2023 at 14:21 Approved by: Taye Cherry M.D. on 09/09/2023 at 14:26
== END ==
PROVIDERS: Referring Provider Urology; Visit Provider Urology
DX: C64.1 Malignant neoplasm of right kidney, except renal pelvis (principal); J84.9 Interstitial pulmonary disease, unspecified; K42.9 Umbilical hernia without obstruction or gangrene; R91.8 Other nonspecific abnormal finding of lung field; I51.7 Cardiomegaly; I25.10 Atherosclerotic heart disease of native coronary artery without angina pectoris; Z90.5 Acquired absence of kidney
CPT/HCPCS: 71250; 74160; Q9967

== ENCOUNTER → 2023-12-13 14:41 | Outpatient (CLI) | payer MEDICARE, SELFPAY ==
--- NOTE | 2023-12-13 14:42 | DI.CT.S_ITS ---
PROCEDURE: CT CHEST WO CON INDICATIONS: ROUTINE CANCER FOLLOW UP TECHNIQUE: Noncontrast 5 mm thick sections acquired from the pulmonary apices to the posterior costophrenic angles. 1 mm lung window, 5 mm thick coronal and sagittal and 7 mm axial MIP reformats were then acquired. For radiation dose reduction, the following was used: automated exposure control, adjustment of mA and/or kV according to patient size. COMPARISON: [facility], CT, CT CHEST WO CON, 09/09/2023, 11:38. FINDINGS: Image quality: Diagnostic. Lower Neck: No enlarged lymph nodes. Thyroid: No thyroid nodules which require sonographic follow up, per consensus guidelines. Axillae: No enlarged lymph nodes. Chest Wall: Unremarkable. Bones: Unremarkable. Lungs and Pleura: No pneumothorax or pleural effusions. Similar peripheral reticulation with subpleural sparing in the lung bases. No honeycombing. Bronchiectasis and bronchiolectasis is present. Growing solid pulmonary nodules. Examples include: -9 x 7 millimeter nodule, right lower lobe (series 3, image 145), previously 6 x 5 millimeter. - 8 x 5 millimeter solid nodule, right middle lobe, previously 4 x 5 millimeter (series 3, image 181). -4 millimeter solid nodule, right middle lobe, previously 2-3 millimeter (series 3, image 169). Heart: Heart size is normal. No pericardial effusion. Thoracic Vessels: The aorta and pulmonary arteries demonstrate normal size. Mediastinum and Jocelyne: No enlarged lymph nodes. Esophagus: No wall thickening. No hiatal hernia. Upper Abdomen: Visualized upper abdomen solid organs and bowel loops appear normal. IMPRESSION: Growing solid pulmonary nodules. Findings are concerning for metastatic disease. Recommend PET-CT. Dictated by: Taye Cherry M.D. on 12/14/2023 at 8:05 Approved by: Taye Cherry M.D. on 12/14/2023 at 8:14
== END ==
PROVIDERS: Referring Provider Urology; Visit Provider Urology
DX: Z08 Encounter for follow-up examination after completed treatment for malignant neoplasm (principal); R91.8 Other nonspecific abnormal finding of lung field; J47.9 Bronchiectasis, uncomplicated; Z85.528 Personal history of other malignant neoplasm of kidney
CPT/HCPCS: 71250

== ENCOUNTER → 2023-12-16 13:44 | Outpatient (CLI) | payer MEDICARE, SELFPAY ==
--- NOTE | 2023-12-16 13:45 | DI.CT.S_ITS ---
PROCEDURE: CT ABDOMEN W CON INDICATIONS: ROUTINE CANCER FU,HX OF KIDNEY CANCER TECHNIQUE: After the administration of intravenous contrast, 5 mm thick sections acquired from the diaphragms to the iliac crests. 5 mm thick coronal and sagittal reformats were acquired. For radiation dose reduction, the following was used: automated exposure control, adjustment of mA and/or kV according to patient size. COMPARISON: [facility], CT, CT ABDOMEN W CON, 09/09/2023, 11:38. FINDINGS: Image quality: Diagnostic. Lower Chest: Separately dictated. ABDOMEN: Liver: No solid mass. Gallbladder: No radiopaque gallstones or wall thickening. Biliary ducts: No biliary dilation. Pancreas: No ductal dilation. Spleen: Size is within normal limits. Adrenal Glands: Similar mild thickening of the left adrenal gland. Kidneys and Ureters: Right nephrectomy. No hydronephrosis. No solid mass. No complex renal cystic lesion which requires follow up. Stomach and Bowel: Normal colonic caliber, without significant wall thickening. Peritoneum: No abnormal intraperitoneal fluid. No free air. Ventral Wall: No hernia. Abdominal Nodes: Similar retroperitoneal lymphadenopathy. Examples include: -stable 8 mm short axis upper periaortic node (series 2, image 30). -stable 1.2 cm aortocaval node (series 2, image 42). Vessels: Aorta and inferior vena cava are normal in size. Bones: No aggressive osseous abnormality. IMPRESSION: Right nephrectomy. Stable retroperitoneal adenopathy. Dictated by: Taye Cherry M.D. on 12/18/2023 at 8:58 Approved by: Taye Cherry M.D. on 12/18/2023 at 9:05
[2023-12-16 14:18] LABS: Estimated Glomerular Filt Rate 28 mL/min (>60)
== END ==
LOC: CT 13:44
PROVIDERS: Radiology Diagnostic Radiology; Referring Provider Urology; Visit Provider Urology
DX: Z08 Encounter for follow-up examination after completed treatment for malignant neoplasm (principal); K68.9 Other disorders of retroperitoneum; Z85.528 Personal history of other malignant neoplasm of kidney; Z90.5 Acquired absence of kidney
CPT/HCPCS: 36415; 74160; 82565; Q9967

== ENCOUNTER → 2024-07-09 11:54 | Outpatient (CLI) | payer MEDICARE, SELFPAY ==
--- NOTE | 2024-07-09 11:57 | DI.CT.S_ITS ---
PROCEDURE: CT CHEST WO CON INDICATIONS: HX KIDNEY CANCER / FOLLOW UP TECHNIQUE: Noncontrast 5 mm thick sections acquired from the pulmonary apices to the posterior costophrenic angles. 1 mm lung window, 5 mm thick coronal and sagittal and 7 mm axial MIP reformats were then acquired. For radiation dose reduction, the following was used: automated exposure control, adjustment of mA and/or kV according to patient size. COMPARISON: [facility], CT, CT ABDOMEN W CON, 07/09/2024, 13:31. [facility], CT, CT CHEST WO CON, 12/13/2023, 14:48. FINDINGS: Image quality: Diagnostic. Lower Neck: No enlarged lymph nodes. Thyroid: No thyroid nodules which require sonographic follow up, per consensus guidelines. Axillae: No enlarged lymph nodes. Chest Wall: Unremarkable. Bones: No suspicious osseous lesion. Bridging vertebral body osteophytes. Lungs and Pleura: No pneumothorax or pleural effusions. Pulmonary fibrosis. No acute airspace opacity is identified. Central airways are clear. Mild bronchiectasis. Several pulmonary nodules which are increased in size. For example: -Left upper lobe 1 cm, (3/84), previously 0.6 cm. -Left lower lobe 1.2 cm, (3/143), previously 0.9 cm. -Right lower lobe 1.1 cm, (3/138), previously 0.8 cm. No new nodules identified. Heart: Heart size is normal. Moderate coronary artery calcifications. No pericardial effusion. Thoracic Vessels: The aorta and pulmonary arteries demonstrate normal size. Mediastinum and Jocelyne: -AP window node measuring 1.3 cm, (2/47), previously 1.1 cm. -Left periaortic node measuring 1.2 cm, (2/63), previously 1 cm. Esophagus: No wall thickening. No hiatal hernia. Upper Abdomen: Dictated separately. Right nephrectomy. Upper abdominal lymph nodes. IMPRESSION: 1. Multiple metastatic pulmonary nodules which are increased in size. 2. Metastatic adenopathy is slightly increased. 3. No acute airspace opacity. No pleural effusion. Please see separately dictated CT abdomen pelvis. Dictated by: Donte De Luna M.D. on 07/09/2024 at 15:28 Approved by: Donte De Luna M.D. on 07/09/2024 at 15:41
--- NOTE | 2024-07-09 11:57 | DI.CT.S_ITS ---
PROCEDURE: CT ABDOMEN W CON INDICATIONS: HX KIDNEY CANCER / FOLLOW UP TECHNIQUE: After the administration of intravenous contrast, 5 mm thick sections acquired from the diaphragms to the iliac crests. 5 mm thick coronal and sagittal reformats were acquired. For radiation dose reduction, the following was used: automated exposure control, adjustment of mA and/or kV according to patient size. COMPARISON: [facility], CT, CT ABDOMEN W CON, 12/16/2023, 15:06. FINDINGS: Image quality: Diagnostic. Lower Chest: Dictated separately. Pulmonary fibrosis. Pulmonary metastases. ABDOMEN: Liver: No solid mass. Gallbladder: No radiopaque gallstones or wall thickening. Biliary ducts: No biliary dilation. Pancreas: No ductal dilation. Spleen: Size is within normal limits. Adrenal Glands: No adrenal nodules. Kidneys and Ureters: Right nephrectomy. No mass in the nephrectomy bed is seen. No hydronephrosis. No solid mass. No complex renal cystic lesion which requires follow up. Stomach and Bowel: Normal colonic caliber, without significant wall thickening. Peritoneum: No abnormal intraperitoneal fluid. No free air. Ventral Wall: Fat containing umbilical hernia. Abdominal Nodes: -Preaortic node measuring 1.6 cm, (2/76), previously 1.4 cm. -Precaval lymph node measuring 1.1 cm, (2/48), previously 0.8 cm. -Left periaortic node measuring 0.9 cm, (2/52), previously 0.9 cm. -Small retrocrural lymph nodes. Vessels: Aorta and inferior vena cava are normal in size. Bones: No aggressive osseous abnormality. IMPRESSION: 1. Right nephrectomy. No mass in the nephrectomy bed. 2. Retroperitoneal adenopathy is slightly increased. Dictated by: Donte De Luna M.D. on 07/09/2024 at 15:41 Approved by: Donte De Luna M.D. on 07/09/2024 at 15:53
[2024-07-09 12:27] LABS: Estimated Glomerular Filt Rate 27 mL/min (>60)
== END ==
PROVIDERS: Radiology Neuroradiology; Referring Provider Urology; Visit Provider Urology
DX: C78.00 Secondary malignant neoplasm of unspecified lung (principal); C77.9 Secondary and unspecified malignant neoplasm of lymph node, unspecified; Z08 Encounter for follow-up examination after completed treatment for malignant neoplasm; Z85.528 Personal history of other malignant neoplasm of kidney; I25.10 Atherosclerotic heart disease of native coronary artery without angina pectoris; K42.9 Umbilical hernia without obstruction or gangrene; Z90.5 Acquired absence of kidney
CPT/HCPCS: 36415; 71250; 74160; 82565; Q9967

== ENCOUNTER → 2025-01-03 06:53 | Outpatient (CLI) | payer MEDICARE, SELFPAY ==
--- NOTE | 2025-01-03 06:54 | DI.CT.S_ITS ---
PROCEDURE: CT ABDOMEN W CON INDICATIONS: Renal cancer TECHNIQUE: After the administration of intravenous contrast, 5 mm thick sections acquired from the diaphragms to the iliac crests. 5 mm thick coronal and sagittal reformats were acquired. For radiation dose reduction, the following was used: automated exposure control, adjustment of mA and/or kV according to patient size. COMPARISON: [facility], CT, CT ABDOMEN W CON, 07/09/2024, 13:31. FINDINGS: Image quality: Diagnostic. Lower Chest: Stable chronic interstitial lung disease with NSIP pattern. ABDOMEN: Liver: No solid mass. Gallbladder: No radiopaque gallstones or wall thickening. Biliary ducts: No biliary dilation. Pancreas: No ductal dilation. Spleen: Size is within normal limits. Adrenal Glands: No adrenal nodules. Kidneys and Ureters: Status post right nephrectomy. No definite mass in this region. No new focal lesion on the left. Stomach and Bowel: Normal colonic caliber, without significant wall thickening. Peritoneum: No abnormal intraperitoneal fluid. No free air. Ventral Wall: No hernia. Abdominal Nodes: There has been significant improvement of retroperitoneal adenopathy, residual nodes measuring for example up to 1 cm in the preaortic region compared to 2.2 x 1.85 cm previously at this level. Vessels: Aorta and inferior vena cava are normal in size. Bones: No aggressive osseous abnormality. IMPRESSION: 1. There has been significant improvement of retroperitoneal adenopathy. 2. No new suspicious focal lesion to suggest tumor recurrence or metastasis. Dictated by: Ike Liu M.D. on 01/03/2025 at 17:58 Approved by: Ike Liu M.D. on 01/03/2025 at 18:03
--- NOTE | 2025-01-03 06:54 | DI.CT.S_ITS ---
PROCEDURE: CT CHEST WO CON INDICATIONS: Renal cancer TECHNIQUE: Noncontrast 5 mm thick sections acquired from the pulmonary apices to the posterior costophrenic angles. 1 mm lung window, 5 mm thick coronal and sagittal and 7 mm axial MIP reformats were then acquired. For radiation dose reduction, the following was used: automated exposure control, adjustment of mA and/or kV according to patient size. COMPARISON: [facility], CT, CT CHEST WO [facility], 07/09/2024, 13:31. FINDINGS: Image quality: Diagnostic. Lower Neck: No enlarged lymph nodes. Thyroid: No thyroid nodules which require sonographic follow up, per consensus guidelines. Axillae: No enlarged lymph nodes. Chest Wall: Unremarkable. Bones: Unremarkable. Lungs and Pleura: No pneumothorax or pleural effusions. No significant focal lung parenchymal lesion seen at this time. Stable interstitial densities in the mid to lower lung bilaterally. Heart: Heart size is normal. No pericardial effusion. Thoracic Vessels: The aorta and pulmonary arteries demonstrate normal size. Mediastinum and Jocelyne: There has been improvement of previously seen mediastinal apathy, residual nodes measuring up to 7.5 millimeter in the osseous of a DESTINY recess compared to 1.2 cm previously at this level. No new mass seen. Esophagus: No wall thickening. No hiatal hernia. Upper Abdomen: Visualized upper abdomen solid organs and bowel loops appear normal. IMPRESSION: 1. There has been resolution of previously seen bilateral lung nodules. 2. There has been moderate improvement of mediastinal adenopathy. 3. No new suspicious focal lesions on this unenhanced study. Dictated by: Ike Liu M.D. on 01/03/2025 at 17:52 Approved by: Ike Liu M.D. on 01/03/2025 at 17:58
[2025-01-03 07:28] LABS: Estimated Glomerular Filt Rate 31 mL/min (>60)
== END ==
LOC: CT 06:54
PROVIDERS: Radiology Diagnostic Radiology; Referring Provider Urology; Visit Provider Urology
DX: Z08 Encounter for follow-up examination after completed treatment for malignant neoplasm (principal); Z85.528 Personal history of other malignant neoplasm of kidney; J84.9 Interstitial pulmonary disease, unspecified; Z90.5 Acquired absence of kidney
CPT/HCPCS: 36415; 71250; 74160; 82565; Q9967